=== PATIENT | male | born 1950 | race Caucasian/White ===

== ENCOUNTER 2016-06-13 10:07 | Day surgery (SDC) | payer OTHER ==
[2016-06-12 07:58] VITALS: BMI 22.1
[~2016-06-13 10:07] MED LIST: DEXAMETHASONE SOD PHOSPHATE 10 MG/ML 1 ML VIAL IV ONE; FAMOTIDINE 20 MG/2 ML VIAL IV PRN; HEPARIN SODIUM,PORCINE 5,000 UNIT/ML 1 ML VIAL SQ ONE; HYDROmorphone 1 MG/ML 1 ML SYRINGE IVP PRN; LIDOCAINE 1% 20 ML VIAL (10MG/ML) FOR IV START INTRADERMA PRN; MIDAZOLAM 2 MG/2 ML VIAL IV PRN; ONDANSETRON 4 MG/2 ML VIAL IVP ONE; ceFAZolin 2 GM in SODIUM CHLORIDE 0.9% 100 ML IVPB ONE
[2016-06-13 11:12] VITALS: RESP 16
[2016-06-13] MEDS ORDERED: LIDOCAINE 1% 20 ML VIAL (10MG/ML) FOR IV START INTRADERMA ONE ×2 (11:43→11:45)
[2016-06-13] MEDS: LACTATED RINGERS 1,000 ML IV SCH ×2 (11:45→11:47)
[2016-06-13] MEDS ORDERED: fentaNYL (PF) 50 MCG/ML 2 ML AMP ONE (12:00)
[2016-06-13] MEDS ORDERED: ePHEDrine 50 MG/ML 1 ML AMP ONE (12:00)
[2016-06-13] MEDS ORDERED: KETOROLAC 30 MG/ML 1 ML VIAL ONE (12:00)
[2016-06-13] MEDS ORDERED: GLYCOPYRROLATE 0.2 MG/ML 2 ML VIAL ONE (12:00)
[2016-06-13] MEDS ORDERED: ROCURONIUM BROMIDE 10 MG/ML 10 ML VIAL IV ONE (12:00)
[2016-06-13] MEDS ORDERED: MIDAZOLAM 2 MG/2 ML VIAL ONE (12:00)
[2016-06-13] MEDS ORDERED: PROPOFOL 10 MG/ML 20 ML VIAL IV ONE (12:00)
[2016-06-13] MEDS ORDERED: SUCCINYLCHOLINE CHLORIDE 100 MG/5 ML SYR IV ONE (12:00)
[2016-06-13] MEDS ORDERED: HYDROmorphone (PF) 1 MG/ML ONE (12:00)
[2016-06-13] MEDS ORDERED: NEOSTIGMINE 1 MG/ML 10 ML VIAL ONE (12:00)
[2016-06-13] MEDS ORDERED: LIDOCAINE 1% INJ 10MG/ML (20 ML MDV) ONE (12:00)
[2016-06-13] MEDS ORDERED: BUPIVACAIN-EPI 0.25%-1:200,000 30 ML VIAL SQ ONE (12:29)
[2016-06-13 16:10] VITALS: TEMP 97.4
[2016-06-13] MEDS ORDERED: LACTATED RINGERS 1,000 ML IV ONE (16:46)
[2016-06-13] MEDS ORDERED: HYDROcodone/APAP 5-325MG 1 EACH TAB PO ONE (17:35)
[2016-06-13 17:36] VITALS: PULSE 89
[2016-06-13 17:54] VITALS: BP 145/86
--- NOTE | 2016-06-13 21:02 | P.OP ---
Date of Procedure: 06/13/16 Preoperative Diagnosis: Left groin pain Postoperative Diagnosis: Recurrent direct inguinal hernia Procedure(s) Performed: Robot-assisted laparoscopic repair of right direct inguinal hernia using mesh Anesthesia: SHILPA Surgeon: Sharon Mcclendon Condition: stable Description of Procedure: Informed consent was obtained patient and then The patient was brought to the operating room and placed in supine position. General anesthesia with endotracheal intubation was performed as per anesthesia team. A faust catheter was inserted under sterile aseptic precautions. Chlorhexidine was used to prep the skin followed by application of sterile drapes . He was placed in the lithotomy positionA timeout was performed to verify correct patient, correct procedure and correct side. Patient was confirmed to receive perioperative IV antibiotics, subcutaneous heparin 5000 units and bilateral SCDs were placed. The left upper quadrant point was identified and a stab incision was made. Veress needle was introduced and placement was confirmed with the help of the drop test. The abdomen was then insufflated to 15 mmHg. Once that was done 5 mm port was introduced into the left upper quadrant using the Optiview technique after which a 12 mm port was placed in the supraumbilical position and a 8 mm port in the right lower quadrant and then after that the another 8 mm port was patent left upper quadrant The robot was then docked with the central camera port and the 2 side working ports. The 30 degree of scope was introduced and the abdomen through the 12 mm port site. Cardiere grasper for the left hand and scissor in the right hand was introduced in the abdominal cavity after which the median umbilical fold was retracted laterally towards the opposite side a small incision was made at the junction of the umbilical fold and the peritoneum and carried all the way laterally thus creating a small plane in the preperitoneal space. The flap was developed further with the help of blunt dissection using gentle stroking maneuvers all the way down to Tr ligament medially and laterally we went inferior exposing the vessels inferiorly. The vas was identified and there was no indirect inguinal hernia. The direct sac was identified and dissected free from the surrounding tissues and reduced completely after which was made sure that there was nothing on the inferior margin that would block the mesh all bands were teased off gently. The [employer] certified pharmacy technician mesh was introduced in the abdominal cavity with the lower part above the level of the peritoneal fold was then unfolded so that it covered all the orifices and covered the Tr's ligament medially.Once it had been positioned perfectly. Once that was done the peritoneal defects were closed with the help of old running Vioxx suture . At this time the procedure was completed. The robotic instruments were removed and the robot was undocked. Using the laparoscope 12 mm port site was closed using a Gumaro Palumbo under direct vision. Once that was done the abdomen was desufflated and the skin was closed with the help of 4-0 Monocryl. Dermabond was applied. Patient tolerated the procedure well. There were no complications. The Faust catheter was removed and the patient extubated taken to recovery room in stable condition.
--- NOTE | 2016-06-13 21:10 | P.OP ---
Date of Procedure: 06/13/16 Preoperative Diagnosis: Right recurrent inguinal hernia Postoperative Diagnosis: Right indirect recurrent inguinal hernia Procedure(s) Performed: Robot-assisted laparoscopic repair of the right recurrent inguinal hernia with mesh Anesthesia: SHILPA Surgeon: Sharon Mcclendon Condition: stable Disposition: PACU Operative Findings: Recurrent right indirect inguinal hernia. Protruding mesh from previous plug repair on the left side that is well encapsulated and adhesions. Description of Procedure: Informed consent was obtained patient and then The patient was brought to the operating room and placed in supine position. General anesthesia with endotracheal intubation was performed as per anesthesia team. A faust catheter was inserted under sterile aseptic precautions. Chlorhexidine was used to prep the skin followed by application of sterile drapes . He was placed in the lithotomy position. A timeout was performed to verify correct patient, correct procedure and correct side. Patient was confirmed to receive perioperative IV antibiotics, subcutaneous heparin 5000 units and bilateral SCDs were placed. The left upper quadrant point was identified and a stab incision was made. Veress needle was introduced and placement was confirmed with the help of the drop test. The abdomen was then insufflated to 15 mmHg. Once that was done 5 mm port was introduced into the left upper quadrant using the Optiview technique. Lap scope was introduced and 100 reduction of the laparoscopic the recurrent left inguinal hernia was evident. Once that was seen the robot was docked and after which a 12 mm port was placed in the supraumbilical position and a 8 mm port in the right upper quadrant and then after that the left-sided 8 mm port was placed in the left upper quadrant. The robot was then docked with the central camera port and the 2 side working ports. The scope was introduced and the abdomen down through the 12 mm port site. Cardiere foceps and scissor were introduced in the abdominal cavity. Incision was made laterally above the site of the mesh in the peritoneum and dissected all the way medially superior to the mesh. A vertical plane was obtained in the right lateral side necrotic running medially. However once encountering the mesh I was unable to completely take the mesh off from the peritoneum and it started tearing therefore I started dissecting in a plane above the mesh and pulled downwards from the anterior abdominal wall running all the way medially. Attention was turned towards the virgin plane inferior and lateral to the mesh itself and was dissected along the peritoneum towards the sac itself. Multiple holding tears were seen in the peritoneum at this point. Once that was entered tree was exposed it was followed all the way up to the sac which was running up the vas into the indirect hernia site. This was meticulously dissected off the vas this completely reducing it. On the medial aspect of the mesh had to be cut to be able to go to go in from the medially to identify the Tr's ligament. This resulted in a large amount of defect in the HER-2/anisha itself. Once the hernial orifices were completely exposed the mesh that had been pulled down from the intra-abdominal wall was excised and a new 10 x 15 mesh was placed covering all the orifices. This was not trimmed at all and was full-size. Medially covered the Tr's ligament and laterally over the iliac vessels. Once that was done appropriate peritoneal mobility had been achieved by lateral dissection and successfully the peritoneum was closed with the help of running 20V lock in a T-shaped configuration. Multiple pieces of mesh had been removed as well. Once the peritoneum had been closed the robot was undocked and under direct laparoscopic vision all the needles Ray-Darrell and pieces of mesh were removed. The 12 mm port site itself was closed using a Gumaro Palumbo. This time the procedure was completed gas was turned off and abdomen was thoroughly desufflated. Skin was infiltrated with local anesthesia and skin closed with 4-0 Monocryl and Dermabond was applied. Patient tolerated procedure well there were no complications patient slowly was removed and he was extubated and taken to recovery room in stable condition.
== END 2016-06-13 18:52 | disposition home or self-care (01) ==
LOC: OR 10:07
PROVIDERS: ATTEND Surgery
DX: K40.91 Unilateral inguinal hernia, without obstruction or gangrene, recurrent (principal); I10 Essential (primary) hypertension; K21.9 Gastro-esophageal reflux disease without esophagitis; F12.90 Cannabis use, unspecified, uncomplicated
CPT/HCPCS: 49651; S2900; 88300

== ENCOUNTER → 2017-07-24 | Outpatient (CLI) | payer MEDICARE ==
--- NOTE | 2017-07-24 10:12 | MR ---
EXAMINATION TYPE: MR knee LT wo con DATE OF EXAM: 07/24/2017 COMPARISON: Outside radiographs dated 07/16/2017 HISTORY: Pain in left inner knee for approximately 4 months with no known trauma. TECHNIQUE: Multiplanar, multisequence imaging of the left knee is performed without IV contrast. FINDINGS: MEDIAL MENISCUS: There is a complex tear of the posterior horn of the medial meniscus with both longi tudinal and radial components. There is no extension into the posterior root. There is associated men iscal extrusion of 3 mm. No extent into the meniscal body or anterior horn. There is discontinuity of the meniscotibial ligament. No para meniscal cyst. LATERAL MENISCUS: Anterior and posterior horns are intact without tear. However there is increased si gnal of the posterior horn of the lateral meniscus without continuation to an articular surface asim tible with myxoid degeneration. CRUCIATE LIGAMENTS: The anterior and posterior cruciate ligaments are intact and unremarkable. COLLATERAL LIGAMENTS: The medial collateral ligament and lateral collateral ligament complex are inta ct. High signal seen superficial and deep to the medial collateral ligament without ligamentous disco ntinuity indicative of a low-grade sprain and MCL bursitis. EXTENSOR MECHANISM: Visualized quadriceps and patellar tendons are intact. Minimal overlying subcutan eous soft tissue swelling is seen in the suprapatellar region, infrapatellar region and prepatellar r egion. EFFUSION: No significant suprapatellar joint effusion. POPLITEAL CYST: Scant amount of fluid is seen between the medial head of the gastric anemias and janki imembranosus tendon without focal cyst formation. TRICOMPARTMENT SPACES: There is mild medial compartment and patellofemoral compartment joint space na rrowing. CARTILAGE: There is diffuse heterogeneity in signal of the patellofemoral cartilage with focal full-t hickness defect of the medial facet measuring 7.7 mm. Fissuring is also seen of the patellar apex wit h underlying increased bone marrow signal on image 16 and 17 relating to minimal reactive edema. At the posterior medial weightbearing surface of the medial femoral condyle there is a full-thickness cartilaginous defect measuring 1.4 x 0.8 cm. Mild signal heterogeneity indicating chondral malacia s een of the remainder of the medial compartment cartilage without additional focal defect. The lateral compartment demonstrates no evidence of focal partial-thickness or full-thickness cartila ginous defect although there is very mild signal heterogeneity within the cartilage from mild chondro malacia. BONE MARROW SIGNAL: As described above, within the patellar apex there is a small area of bone marrow edema secondary to a focal cartilaginous fissure. No additional areas of focal abnormal marrow signa l is appreciated. Increased PD signal within the tibial plateau demonstrates no evidence of decreased signal on T1 weighted imaging and is therefore related to patchy marrow. IMPRESSION: 1. Complex tear of the posterior horn of the medial meniscus with associated 3 mm meniscal extrusion and no extent into the posterior root or meniscal body. 2. Meniscal degeneration of the posterior horn of the lateral meniscus. 3. Findings of low-grade medial collateral ligament sprain and mild MCL bursitis. 4. Tricompartmental arthrosis and chondromalacia with full-thickness defect of the medial patellar fa cet measuring 7.7 mm, fissure at the patellar apex with underlying pulmonary edema, and full-thicknes s defect of the posterior medial weightbearing surface of the medial femoral condyle measuring 1.4 x 0.8 cm.
== END | disposition home or self-care (01) ==
LOC: RADMRIMAIN 07:50
PROVIDERS: ATTEND Orthopaedic Surgery
DX: S83.412A Sprain of medial collateral ligament of left knee, initial encounter (principal); S83.242A Other tear of medial meniscus, current injury, left knee, initial encounter; M70.52 Other bursitis of knee, left knee; M17.12 Unilateral primary osteoarthritis, left knee; M94.262 Chondromalacia, left knee; M25.862 Other specified joint disorders, left knee

== ENCOUNTER → 2017-08-08 | Outpatient (CLI) | payer MEDICARE ==
[2017-08-08 09:55] LABS: Basophils # (A) 0.1 k/uL (0-0.2); Basophils % (A) 1 %; Eosinophils # (A) 0.1 k/uL (0-0.7); Eosinophils % (A) 2 %; HCT 43.9 % (39.0-53.0); HGB 14.8 gm/dL (13.0-17.5); Lymphocytes # (A) 1.9 k/uL (1.0-4.8); Lymphocytes % (A) 26 %; MCH 29.5 pg (25.0-35.0); MCHC 33.7 g/dL (31.0-37.0); MCV 87.4 fL (80.0-100.0); Mean Platelet Volume 6.8; Monocytes # (A) 0.4 k/uL (0-1.0); Monocytes % (A) 6 %; Neutrophils # (A) 4.5 k/uL (1.3-7.7); Neutrophils % (A) 63 %; Platelet Count 269 k/uL (150-450); RBC 5.03 m/uL (4.30-5.90); RDW 13.3 % (11.5-15.5); WBC 7.1 k/uL (3.8-10.6)
== END | disposition home or self-care (01) ==
LOC: LABPAT 09:27
PROVIDERS: ATTEND Orthopaedic Surgery
DX: Z01.812 Encounter for preprocedural laboratory examination (principal); M23.92 Unspecified internal derangement of left knee; Z01.818 Encounter for other preprocedural examination
CPT/HCPCS: 36415; 80051; 85025; 93005

== ENCOUNTER 2017-08-13 08:27 | Day surgery (SDC) | payer MEDICARE ==
--- NOTE | 2017-08-12 09:08 | HP ---
HISTORY AND PHYSICAL Surgery is scheduled for 08/13/2017. Cayetano Anderosn is a 67-year-old patient seen with progressive left knee pain. We discussed treatment options. He elected to proceed with arthroscopy. Consent was obtained. PAST MEDICAL HISTORY: His past medical history is noncontributory. PAST SURGICAL HISTORY: Herniorrhaphy and left knee arthroscopy. DAILY MEDICATIONS: None reported. ALLERGIES: None known. SOCIAL HISTORY: The patient denies current tobacco use. PHYSICAL EVALUATION OF THE LEFT KNEE: His range of motion 0 to 120 degrees. There is a mild effusion present. Tenderness along the medial joint line. Positive medial Ana Laura's. His ligaments are stable. Hip rotation is without pain. Distal neurovascular exam is intact. Radiographs of the left knee revealed mild osteoarthritis and MRI of the left knee revealed a medial meniscal tear as well as osteoarthritis. IMPRESSION: Internal derangement left knee with medial meniscal tear. PLAN: Left knee arthroscopy with partial meniscectomy and debridement. MMODL / IJN: [id number] /
[2017-08-12 10:26] VITALS: BMI 21.5
[~2017-08-13 08:27] MED LIST changes: -DEXAMETHASONE SOD PHOSPHATE 10 MG/ML 1 ML VIAL IV ONE; -FAMOTIDINE 20 MG/2 ML VIAL IV PRN; -HEPARIN SODIUM,PORCINE 5,000 UNIT/ML 1 ML VIAL SQ ONE; +HYDROmorphone 0.5 MG/0.5 ML SYRINGE IVP PRN; -HYDROmorphone 1 MG/ML 1 ML SYRINGE IVP PRN; +LACTATED RINGERS 1,000 ML IV SCH; -LIDOCAINE 1% 20 ML VIAL (10MG/ML) FOR IV START INTRADERMA PRN; -MIDAZOLAM 2 MG/2 ML VIAL IV PRN; -ONDANSETRON 4 MG/2 ML VIAL IVP ONE; +ONDANSETRON 4 MG/2 ML VIAL IVP PRN; +ceFAZolin 1,000 MG in DEXTROSE/WATER 1 50ML.BAG IV ONE; -ceFAZolin 2 GM in SODIUM CHLORIDE 0.9% 100 ML IVPB ONE
[2017-08-13] MEDS ORDERED: LIDOCAINE 1% 20 ML VIAL (10MG/ML) FOR IV START INTRADERMA ONE (09:40)
[2017-08-13] MEDS ORDERED: DEXAMETHASONE SOD PHOSPHATE 10 MG/ML 1 ML VIAL IV ONE (09:40)
[2017-08-13] MEDS ORDERED: fentaNYL (PF) 50 MCG/ML 2 ML AMP ONE (10:23)
[2017-08-13] MEDS ORDERED: MIDAZOLAM 2 MG/2 ML VIAL ONE (10:23)
[2017-08-13] MEDS ORDERED: PROPOFOL 10 MG/ML 20 ML VIAL IV ONE (10:23)
[2017-08-13] MEDS ORDERED: SUCCINYLCHOLINE CHLORIDE 100 MG/5 ML SYR IV ONE (10:23)
[2017-08-13] MEDS ORDERED: LIDOCAINE 1% INJ 10MG/ML (20 ML MDV) ONE (10:23)
[2017-08-13] MEDS ORDERED: BUPIVACAINE (PF) 0.25% 30 ML VIAL INTRAARTIC ONE ×2 (10:28→10:59)
[2017-08-13 11:18] VITALS: TEMP 97
--- NOTE | 2017-08-13 11:20 | P.OP ---
Date of Procedure: 08/13/17 Preoperative Diagnosis: Internal derangement left knee Postoperative Diagnosis: 1. Tear medial and lateral meniscus left knee 2. Grade 2/3 chondromalacia medial femoral condyle left knee 3. 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 Reactive synovitis medial and suprapatellar compartments left knee Procedure(s) Performed: 1. Arthroscopic partial medial and lateral meniscectomy left knee 2. Arthroscopic chondroplasty medial femoral condyle left knee 3. Arthroscopic chondroplasty patella left knee 4. Arthroscopic partial synovectomy medial and suprapatellar compartments left knee Anesthesia: BRUCEA, local Surgeon: Joey Walton Estimated Blood Loss (ml): 10 Pathology: none sent Condition: stable Disposition: PACU Indications for Procedure: 67 -year-old patient seen with progressive left knee pain. After having treatment options discussed, he elected to proceed with arthroscopy. Operative Findings: see description of procedure Description of Procedure: Patient was taken to the operative suite. Patient underwent a general anesthetic by the department of anesthesia. Patient was given preoperative antibiotics. The left lower extremity was placed in a well-padded arthroscopic leg rees. The left leg was prepped and draped in the normal sterile orthopedic fashion. A lateral parapatellar and suprapatellar incision was made. Trochars were inserted. Arthroscopy was initiated. Suprapatellar pouch revealed diffuse thick reactive right. The patellofemoral joint appeared to articulate congruently. There was grade 1/2 chondromalacia of the patella with some small osteochondral tears present. The scope was guided into the medial gutter. No loose bodies or plica were identified. The scope was then guided into the medial compartment. A medial parapatellar incision was made. Trocar inserted followed by probe. There was a complex tear involving the posterior horn of the medial meniscus. There were grade 2/3 chondromalacia changes of the medial femoral condyle with osteochondral tears present. There was reactive synovitis anteriorly. I performed a partial medial meniscectomy down to stable tissue. I performed a chondroplasty of the medial femoral condyle down to stable tissue and partial synovectomy. The residual meniscus and osteochondral surface were both found to be stable. Scope and probe were then guided into the intercondylar notch. Cruciates were identified, probed and found to be stable. The scope and probe were then guided into lateral compartment. There was a small radial tear mid body lateral meniscus. There were grade 1/2 chondral malacia changes of the lateral compartment but no osteochondral tears were present. I performed a partial lateral meniscectomy down to stable tissue. The residual meniscus was stable. The scope was in guided back into the suprapatellar compartment. I introduced a motorized shaver into the suprapatellar compartment. I debrided some piecemeal fragments of meniscus. I performed a chondroplasty of the patella down to stable tissue. I performed a partial synovectomy. Shaver was removed. I took one more look on the entire knee, no residual debris. Instruments were now removed from the joint. The joint was infiltrated with .25% Marcaine. Steri-Strips were applied to the portal sites. Sterile dressings were applied. The patient was placed into a ERIN hose. No tourniquet was utilized. The patient was awakened, transferred to a bed and taken to recovery stable satisfactory condition.
[2017-08-13] MEDS: fentaNYL (PF) 50 MCG/ML 2 ML AMP IVP ONE ×2 (11:34→11:43)
[2017-08-13] MEDS ORDERED: KETOROLAC 30 MG/ML 1 ML VIAL IVP ONE (11:34)
[2017-08-13] MEDS ORDERED: HYDROcodone/APAP 5-325MG 1 EACH TAB PO ONE (13:40)
[2017-08-13 13:55] VITALS: RESP 18
[2017-08-13 14:31] VITALS: BP 133/80; PULSE 68
== END 2017-08-13 14:46 | disposition home or self-care (01) ==
LOC: OR 08:27
PROVIDERS: ATTEND Orthopaedic Surgery
DX: S83.232A Complex tear of medial meniscus, current injury, left knee, initial encounter (principal); S83.242A Other tear of medial meniscus, current injury, left knee, initial encounter; S83.282A Other tear of lateral meniscus, current injury, left knee, initial encounter; X58.XXXA Exposure to other specified factors, initial encounter; M94.262 Chondromalacia, left knee; M22.42 Chondromalacia patellae, left knee; M65.862 Other synovitis and tenosynovitis, left lower leg; M17.12 Unilateral primary osteoarthritis, left knee; K21.9 Gastro-esophageal reflux disease without esophagitis
CPT/HCPCS: 29880; J2250; J1100; J2405; J2001; J3010; J1885; J0330; J2704